=== PATIENT | female | born 1995 | race Caucasian/White ===

== ENCOUNTER 2022-01-15 07:18 | Outpatient (CLI) | payer BC, SELFPAY ==
--- NOTE | 2022-01-15 07:36 | US_ITS ---
WS: [id number] LIMITED OBSTETRICAL ULTRASOUND HISTORY: SUPERVISION OF NORMAL , FIRST TRIMESTER COMPARISON: None available. Presentation: Breech Cervix: Closed and normal length. Placenta: Anterior, no previa or abruption. Grade: 0 HEART: FHR of 150 BPM. measurements: BPD = 2.6 cm = 14w4d HC = 10.1 cm = 14w5d AC = 8.0 cm = 14w3d FL = 1.5 cm = 14w2d Normal amount of amniotic fluid surrounds the fetus. Normal LEFT ovary. RIGHT ovary not identified. No free fluid. AGA by ultrasound: 14w4d DONNELL by ultrasound: 07/12/2022 US/US OB limited [id number] IMPRESSION: 1. Single intrauterine gestation of 14 weeks 4 days with an EDC of 07/12/2022. 2. Normal cardiac activity.
== END 2022-01-15 07:19 | disposition home or self-care (01) ==
PROVIDERS: PCP Family Medicine; Visit Provider Family Medicine
DX: Z34.91 Encounter for supervision of normal pregnancy, unspecified, first trimester (principal)
CPT/HCPCS: 76815

== ENCOUNTER 2022-03-09 07:51 | Outpatient (CLI) | payer BC, SELFPAY ==
--- NOTE | 2022-03-09 08:02 | US_ITS ---
WS: [id number] OBSTETRICAL ULTRASOUND COMPLETE HISTORY: SECOND TRIMESTER /ANATOMY CHECK COMPARISON: 01/15/2022 Single intrauterine gestation in Cephalic presentation. Cervix is Closed and normal length. Cervical length is 3.7 cm. Normal amount of amniotic fluid surrounds the fetus. Placenta: Anterior, no previa or abruption. Placenta grade 0 Heart: 153 BPM. Four chambers are identified. RIGHT and LEFT outflow tracts are unremarkable. Anatomy: Intracranial structures and spine are normal. kidneys, stomach and urinary bladd er are unremarkable. Abdominal wall, three-vessel cord and cord insertion site are normal. 4 extremities are present. profile: Unremarkable. Gender: Male. measurements: BPD = 5.4 cm = 22w2d HC = 19.8 cm = 22w0d AC = 17.4 cm = 22w2d FL = 3.6 cm = 21w3d EFW: 460 g. 50th percentile Biometry is internally concordant. AGA by ultrasound: 22w0d DONNELL by ultrasound: 07/13/2022 US/US OB >= 14 weeks fetus [id number] IMPRESSION: 1. Single intrauterine gestation of 22w0d with an DONNELL of 07/13/2022. Appropria te growth since the prior ultrasound. 2. Unremarkable screening survey of anatomy.
== END 2022-03-09 07:52 | disposition home or self-care (01) ==
PROVIDERS: PCP Family Medicine; Visit Provider Family Medicine
DX: Z36.89 Encounter for other specified antenatal screening (principal); Z3A.22 22 weeks gestation of pregnancy
CPT/HCPCS: 76805

== ENCOUNTER 2022-06-26 09:30 | Outpatient (CLI) | payer BC, SELFPAY ==
[2022-06-26 09:30] VITALS: BMI 23.8
[2022-06-26 09:47] VITALS: BP 127/74; PULSE 109; TEMP 36.1
[2022-06-26 10:02] VITALS: BP 119/75; PULSE 93
== END 2022-06-26 10:10 | disposition home or self-care (01) ==
LOC: OPOB 09:43 → OBGYN 09:46
PROVIDERS: PCP Family Medicine; Visit Provider Family Medicine
DX: O99.419 Diseases of the circulatory system complicating pregnancy, unspecified trimester (principal); Z3A.00 Weeks of gestation of pregnancy not specified
CPT/HCPCS: 59025; 99211

== ENCOUNTER 2022-07-13 11:12 | Outpatient (CLI) | payer BC, SELFPAY ==
[2022-07-13 11:20] VITALS: BMI 24.7
[2022-07-13 11:28] VITALS: BP 126/88; PULSE 91
[2022-07-13 11:49] VITALS: BP 130/80; PULSE 83
[2022-07-13 12:27] VITALS: BP 130/80; PULSE 83; RESP 18
== END 2022-07-13 12:05 | disposition home or self-care (01) ==
LOC: OPOB 11:16 → OBGYN 11:19
PROVIDERS: PCP Family Medicine; Visit Provider Family Medicine
DX: O36.8190 Decreased fetal movements, unspecified trimester, not applicable or unspecified (principal); Z3A.00 Weeks of gestation of pregnancy not specified
CPT/HCPCS: 59025; 99211

== ENCOUNTER 2022-07-20 02:03 | Inpatient (IN) | payer BC, SELFPAY ==
[2022-07-20] VITALS (23 sets, daily range): BP systolic 112–156; BP diastolic 58–89; PULSE 60–90; RESP 16; TEMP 36.1–37.1; BMI 24.5
[2022-07-20 02:11] LABS: Basophils # 0.1 10^3/uL (0.0-0.1); Basophils % 0.6 %; Eosinophils # 0.1 10^3/uL (0.0-0.8); Eosinophils % 0.7 %; Hemoglobin 13.5 g/dL (11.5-15.3); Lymphocytes % 24.7 %; Mean Corpuscular HGB Conc 32.1 g/dL (30.0-36.0); Mean Corpuscular Hemoglobin 28.1 pg (28.0-34.0); Mean Corpuscular Volume 87.3 fl (81-99); Mean Platelet Volume 12.5 fL (7.4-10.4); Monocytes # 0.7 10^3/uL (0.2-0.9); Monocytes % 4.4 %; Neutrophils % 68.6 %; Nucleated Red Blood Cells % 0 %; Platelet Count 327 10^3/cmm (130-400); Red Blood Count 4.81 10^6/uL (4.1-5.3); Red Cell Distribution Width 13.2 % (12.1-15.1); White Blood Count 16.3 10^3/uL (4.0-10.0)
[2022-07-20] MEDS: oxytocin 30 UNIT/500 ML BAG 600 UNIT IV (02:15)
[2022-07-20] MEDS: dextrose 5%-lactated ringers 1,000 ML 125 ML IV (02:15)
--- NOTE | 2022-07-20 02:48 | P.PCNOB_ITS ---
Delivery Note: Date of delivery: July 20, 2022 Pre-delivery diagnoses: Term Active labor Post-delivery diagnoses: Term of male Procedure: Spontaneous vaginal delivery Delivering Physician: Anh Dahl DO Estimated blood loss (mL): 100 Pre-Delivery Course: Patient arrived complete with urge to push. Contractions started around midnight and quickly increased in frequency, duration, and intensity. SROM en route to hospital <1 hour prior to delivery. Delivery: Patient progressed to complete. Patient placed in lithotomy position. Patient pushed with adequate effort. Head delivered in OA position, tight nuchal cord was present and reduced. Shoulders and rest of body delivered without difficulty with no anesthesia. Terminal meconium noted. Mouth and nares bulb suctioned. placed on maternal abdomen. Cord clamped and cut after 30 second delay. Infant transferred to warmer for evaluation after cord cutting with deep suctioning done for mucous. Placenta spontaneously delivered and noted to be intact. Pitocin initiated. Fundus was noted to be firm. The vagina and cervix were inspected and small 2nd degree lacerations was noted. Fundus was again noted to be firm with minimal bleeding. Male born at 02:12 on 07[birth year]/22 with 8/9 weighing 8 lb 0 oz and measuring 20 inches in length Placenta noted to be intact with centrally inserted 3 vessel umbilical cord. Complications: Maternal none Infant none History History History 2 Term 1 0 Miscarriages/Ectopic 0 Living Children 1 Coding Level of Care Code Acute Director Marketing for Chg Yusef
--- NOTE | 2022-07-20 02:48 | P.HP_ITS ---
Providers/Chief Complaint Admitting Physician: Anh Dahl DO Primary Care Provider: Anh Dahl DO Chief Complaint: contractions HPI NETWORK COMMUNICATIONS ENGINEER History of Present Illness Jennifer Lepe is a 27 year old female at 40w5d by sure LMP c/w 14wk US with PMHx tobacco use- stopped in 2nd trimester. PMHx low BMI and childhood asthma. Recovery from COVID in this . She presents to L&D with strong contractions and urge to push with reports of LOF en route to hospital. I was called at approx 1:58am and immediately proceeded to hospital. On arrival she is in pain and complaining of the urge to push care was good and starting in first trimester. Labs Blood type OB HPI: O (+) positive Rubella: Immune RPR: Negative GBS: Negative HBsAG: Negative Other Lab Information: HIV negative Pap smear NILM 12/27/21 Initial H/H 13.6/40.3 3rd trimester H/H 12.7/36.8 Hep C neg UCx no growth 1hr GTT failed (155) 3hr GTT passed (76, 126, 110, 126) Review of Systems General: Reports: ROS unobtainable due to medical condition (severe labor pain and urge to push ) Medications/Allergies Home Medications Medication Instructions Recorded Confirmed Last Taken Type no.58-iron bisglycinate cap PO 06/26/22 06/25/22 21:00 History 10 mg iron-folic acid 400 mcg capsule Allergies Allergy/AdvReac Type Severity Reaction Status Date / Time No Known Allergies Allergy Verified 06/26/22 11:25 History History History 2 Term 1 0 Miscarriages/Ectopic 0 Living Children 1 Vitals/I&O/Wt Last Vital Signs Pulse 76 07/20/22 02:17 Resp 16 07/20/22 02:41 BP 123/58 07/20/22 02:17 Weight last 48 hrs Weight 130 lb Physical Exam Const: COMMON NORMALS: healthy appearing and alert Resp: COMMON NORMALS: normal respiratory effort : OTHER: SVE: complete, +2 Extremity: NARRATIVE EXTREMITY EXAM: No LE edema Psych: COMMON NORMALS: mental status grossly normal Skin: COMMON NORMALS: no rashes or lesions noted Data 07/20/22 02:02 A&P Assessment and plan (1) Uterine contractions during : 27 year old female at 40w5d by sure LMP c/w 14wk US with PMHx tobacco use- stopped in 2nd trimester. PMHx low BMI and childhood asthma. Presents complete and with urge to push. Admit for delivery, CBC, anticipate vaginal delivery. (2) Term : Attestations Medical Necessity Statement*: Jennifer Lepe's hospital stay will require greater than 2 midnights for routine labor and delivery and care. Coding Level of Care Code Acute Information Systems Auditor for Chg Fwd Diagnoses Uterine contractions during O47.9 Term Z34.90
[2022-07-20] MEDS: lanolin oint 7 gm 1 APPLIC TOPICAL (04:34)
[2022-07-20] MEDS: benzocaine-menthol 78 gm Canister 1 SPRAY TOPICAL (04:34)
[2022-07-20] MEDS: lidocaine 2% INJ 20 mL INJECTION (04:36)
[2022-07-20] MEDS: acetaminophen 325 mg Tablet 650 MG PO (07:41)
[2022-07-20] MEDS: ibuprofen 800 mg tablet PO ×3 (09:34→23:33)
[2022-07-20] MEDS: docusate sodium 100 mg Capsule PO (09:34)
[2022-07-20] MEDS: prenatal vitamin Capsule 1 CAP PO (09:35)
[2022-07-20 14:51] LABS: Hematocrit 34.9 % (37.0-47.0); Hemoglobin 11.2 g/dL (11.5-15.3); Mean Corpuscular HGB Conc 32.1 g/dL (30.0-36.0); Mean Corpuscular Hemoglobin 28.3 pg (28.0-34.0); Mean Corpuscular Volume 88.1 fl (81-99); Mean Platelet Volume 12.6 fL (7.4-10.4); Platelet Count 233 10^3/cmm (130-400); Red Blood Count 3.96 10^6/uL (4.1-5.3); Red Cell Distribution Width 13.2 % (12.1-15.1); White Blood Count 20.6 10^3/uL (4.0-10.0)
[2022-07-21] VITALS (7 sets, daily range): BP systolic 105–130; BP diastolic 65–71; PULSE 69–88; TEMP 35.9–36.4
[2022-07-21] MEDS: docusate sodium 100 mg Capsule PO (08:56)
[2022-07-21] MEDS: prenatal vitamin Capsule 1 CAP PO (08:56)
[2022-07-21] MEDS: ibuprofen 800 mg tablet PO ×2 (08:56→16:42)
--- NOTE | 2022-07-21 11:04 | PM.OBGYDC ---
Discharge Providers COCOA ROASTER Date of Admission: 07/20/22 02:03 Date of Discharge: 07/21/22 Attending Provider at Admission: Anh Dahl DO Attending Provider at Discharge: Anh Dahl DO Primary Care Provider: Anh Dahl DO Diagnoses at Discharge Discharge Diagnosis (1) Uterine contractions during : Status: Resolved (2) Term : Status: Resolved (3) Spontaneous vaginal delivery: Status: Acute Reason for Visit Reason for Visit: contractions Hospital Course Hospital Course Pre-Delivery: Patient arrived complete with urge to push. Contractions started around midnight and quickly increased in frequency, duration, and intensity. SROM en route to hospital <1 hour prior to delivery. Delivery: Patient progressed to complete. Patient placed in lithotomy position. Patient pushed with adequate effort. Head delivered in OA position, tight nuchal cord was present and reduced. Shoulders and rest of body delivered without difficulty with no anesthesia. Terminal meconium noted. Mouth and nares bulb suctioned. placed on maternal abdomen. Cord clamped and cut after 30 second delay.? transferred to warm for evaluation after cord cutting with deep suctioning done for mucous.? Placenta spontaneously delivered and noted to be intact. Pitocin initiated. Fundus was noted to be firm. The vagina and cervix were inspected and small 2nd degree lacerations was noted. Fundus was again noted to be firm with minimal bleeding. Male born at 02:12 on 07[birth year]20/22 with 8/9? weighing 8 lb 0 oz and measuring 20 inches in length Placenta noted to be intact with centrally inserted 3 vessel umbilical cord. Complications: Maternal none ? none Post-Delivery: Patient underwent on 07/30/22. course was uncomplicated. Following delivery patient ambulated well, tolerated a normal diet without nausea or vomiting. Pain was well-controlled on PO medications, exclusively, no leg/calf pain, no calf/leg swelling, normal urination, passing gas and normal bowel movements. Vaginal bleeding minimal and decreasing. hemoglobin from 13.5 on admission to 11.2 . control was discussed and patient undecided- plan to discuss on follow-up. Follow-up planned for 2 and 6 weeks . Warning signs for endometritis, pre-eclampsia, DVT/PE, mastitis, hemorrhage were reviewed. Pelvic rest and activity precautions reviewed as well. She is discharged on 07/21/22 in stable condition. Information Peripartum Data: Infant Delivery Method: Vaginal Physical Exam Const: COMMON NORMALS: healthy appearing and alert Resp: COMMON NORMALS: normal respiratory effort and clear to auscultation bilaterally AUSCULTATION: clear to auscultation bilaterally Cardio: COMMON NORMALS: regular rate, regular rhythm, S1 normal heart sound present, S2 normal heart sound present and No murmurs present (Cardio) RATE: regular rate RHYTHM: regular rhythm HEART SOUNDS: S1 normal heart sound present and S2 normal heart sound present : OTHER: Uterine fundus firm and below the umbilicus Extremity: NARRATIVE EXTREMITY EXAM: No LE edema, no calf tenderness Neuro: SENSORIUM/ORIENTATION: Yes alert Psych: COMMON NORMALS: mental status grossly normal Skin: COMMON NORMALS: no rashes or lesions noted GENERAL SKIN EXAM: no rashes or lesions noted History History History 2 Term 1 0 Miscarriages/Ectopic 0 Living Children 1 Discharge Data Studies Completed and Pending Laboratory Results WBC 20.6 10^3/uL (4.0-10.0) H 07/20/22 14:25 RBC 3.96 10^6/uL (4.1-5.3) L 07/20/22 14:25 Hgb 11.2 g/dL (11.5-15.3) L 07/20/22 14:25 Hct 34.9 % (37.0-47.0) L 07/20/22 14:25 MCV 88.1 fl (81-99) 07/20/22 14:25 MCH 28.3 pg (28.0-34.0) 07/20/22 14:25 MCHC 32.1 g/dL (30.0-36.0) 07/20/22 14:25 RDW 13.2 % (12.1-15.1) 07/20/22 14:25 Plt Count 233 10^3/cmm (130-400) 07/20/22 14:25 MPV 12.6 fL (7.4-10.4) H 07/20/22 14:25 Neut % (Auto) 68.6 % 07/20/22 02:02 Lymph % (Auto) 24.7 % 07/20/22 02:02 Mcdonough % (Auto) 4.4 % 07/20/22 02:02 Eos % (Auto) 0.7 % 07/20/22 02:02 Baso % (Auto) 0.6 % 07/20/22 02:02 Neut # (Auto) 11.20 10^3/uL (1.8-7.7) H 07/20/22 02:02 Lymph # (Auto) 4.0 10^3/uL (0.8-4.8) 07/20/22 02:02 Mcdonough # (Auto) 0.7 10^3/uL (0.2-0.9) 07/20/22 02:02 Eos # (Auto) 0.1 10^3/uL (0.0-0.8) 07/20/22 02:02 Baso # (Auto) 0.1 10^3/uL (0.0-0.1) 07/20/22 02:02 Nucleated RBC % (auto) 0 % 07/20/22 02:02 Nucleated RBCs # 0.0 /100WBC 07/20/22 02:02 Blood Type O Positive 07/20/22 02:05 Rho(D) Type Positive 07/20/22 02:05 Antibody Screen Negative 07/20/22 02:05 Vitals Last Vital Signs Temp 96.6 F L 07/21/22 08:55 Pulse 88 07/21/22 08:56 Resp 16 07/20/22 02:45 BP 130/70 07/21/22 08:56 O2 Del Method 07/20/22 04:00 Discharge Plan Discharge Patient Disposition: Home Condition: Stable Prescriptions: New docusate sodium 100 mg Capsule 100 mg PO BID Qty: 90 0RF ibuprofen 800 mg Tablet 800 mg PO TID Qty: 90 0RF Continued PNV comb no.58-iron bisgly-FA 10-400 mg-mcg Capsule PO Discharge Orders: Discharge Order (Routine); Ordered 07/21/22 Ordered By: Anh Dahl Discharge Diet: Regular Discharge Activity: Increase activity as tolerated Patient Instructions: Ibuprofen (By mouth), Vitamins (By mouth), Laxative, Stool Softeners (By mouth) (Doculax, Colace, Colace Clear, DSS), Bleeding (DC), Pelvic Rest (ED), Preeclampsia and Eclampsia After Delivery (GEN), Vaginal Delivery (DC), OB Food/Drug Interaction Guide, Opioid Safety Activity Restrictions/Additional Instructions: Pelvic rest for 6 weeks. Follow-up with Dr. Dahl at 2 and 6 weeks . Call office for appointment. Discharge Attestations COCOA ROASTER Time Spent in Discharge Care*: less than 30 min Coding Level of Care Code Acute Cargo Station Worker for Chg Fwd Diagnoses Uterine contractions during O47.9 Term Z34.90 Spontaneous vaginal delivery O80
== END 2022-07-21 18:29 | disposition home or self-care (01) | DRG 807 ==
LOC: OBGYN 08:02 → OPOB 07-21 07:34 → OBGYN 07-21 07:34
PROVIDERS: Admitting Provider Family Medicine; PCP Family Medicine; Visit Provider Family Medicine
DX: O48.0 Post-term pregnancy (principal); Z37.0 Single live birth; Z3A.40 40 weeks gestation of pregnancy; O77.0 Labor and delivery complicated by meconium in amniotic fluid; O99.334 Smoking (tobacco) complicating childbirth; O99.52 Diseases of the respiratory system complicating childbirth; J45.909 Unspecified asthma, uncomplicated; O69.1XX0 Labor and delivery complicated by cord around neck, with compression, not applicable or unspecified; O70.9 Perineal laceration during delivery, unspecified; F17.200 Nicotine dependence, unspecified, uncomplicated
CPT/HCPCS: 36415; 59025; 59409; 85025; 85027; 86850; 86900; 99211; J2590; J7121

== ENCOUNTER 2025-04-02 02:04 | Inpatient (IN) | payer BC, SELFPAY ==
[2025-04-02] VITALS (14 sets, daily range): BP systolic 114–123; BP diastolic 71–89; PULSE 78–82; RESP 16–17; TEMP 36.6–37
[2025-04-02] MEDS: oxytocin 30 UNIT/500 ML BAG 300 UNIT (02:00)
[2025-04-02 02:15] LABS: Hematocrit 39.7 % (36-47); Hemoglobin 12.60 g/dL (11.27-16.99); Mean Corpuscular HGB Conc 31.7 g/dL (30-55); Mean Corpuscular Hemoglobin 26.8 pg (27-33); Mean Corpuscular Volume 84.3 fl (85-98); Nucleated Red Blood Cells % 0 %; Platelet Count 242 10^3/cmm (157-399); Red Blood Count 4.71 10^6/uL (3.85-5.65); White Blood Count 16.26 10^3/uL (3.29-11.43)
--- NOTE | 2025-04-02 02:20 | PM.OPHPUD ---
Labor & Delivery H&P Update Date of Procedure: April 02, 2025 Date H&P Performed: 04/01/25 Changes to previous documentation: The patient arrived to the hospital complete with spontaneous rupture of membranes Admission Diagnosis: 29-year-old 3 para 2-0-0-2 at 38 weeks estimated gestational age and diet-controlled gestational diabetes Planned procedure: Spontaneous vaginal delivery Other information: The patient is a 29-year-old female whose had a this been remarkable for gestational diabetes. She has had consistent care. She had well-controlled diet-controlled gestational diabetes. Otherwise, there were no concerns during her . Her blood type is O+. Her antibody screen was negative. She is GBS negative. She is rubella immune. She did not pass her 3-hour glucose screen. The remainder of her infectious disease profile was within normal limits.. Related Problem List Diagnoses 1. 38 weeks gestation of : 2. Gestational diabetes mellitus: A&P Assessment and plan 1. 38 weeks gestation of : The patient delivered her baby shortly after arrival to hospital. Status: Acute 2. Gestational diabetes mellitus: Status: Acute PDMP PDMP Reviewed: Not Reviewed
--- NOTE | 2025-04-02 02:23 | PM.DELIVERY ---
Delivery Note: Date of delivery: April 02, 2025 Pre-delivery diagnoses: 29-year-old 3 para 2-0-0-2 at 38 weeks estimated gestational age presenting with spontaneous rupture of membranes and an active labor Post-delivery diagnoses: Status post precipitous spontaneous vaginal delivery Procedure: Precipitous vaginal delivery Delivering Physician: Kevin Hughes Estimated blood loss (mL): 200 Pre-Delivery Course: The patient arrived to the hospital having contractions every 2 to 5 minutes and having had rupture membranes about 1/2-hour prior to arrival. Delivery: DELIVERY: The patient progressed to complete without difficulty. She precipitously delivered a female with a weight of 6 pounds 9 ounces with Apgars of 8, 9. The baby was delivered from the vertex position. The baby's mouth and nose were suctioned at the site of the perineum. The baby was then completely delivered and placed on the mother's abdomen. The cord was then clamped and later cut. There was no nuchal cord. Meconium was noted. The placenta and 3 vessel cord were delivered intact shortly thereafter. The perineum and vaginal vault were carefully examined. A superficial posterior midline tear extending into the perineum was noted. Bleeding stopped and no stitches were necessary.. Both the mother and the baby were in stable condition. Post-Delivery Status: Good History History History 3 Term 3 0 Miscarriages/Ectopic 0 Living Children 3 A&P Assessment and plan 1. Gestational diabetes mellitus: 2. Spontaneous vaginal delivery: I anticipate routine care. The patient had excellent control of her diabetes with diet to her , no further evaluation of her diabetes beyond a twice daily blood sugar check will be required. 3. 38 weeks gestation of : PDMP PDMP Reviewed: Not Reviewed Coding Level of Care Code Acute Code for Chg Fwd Diagnoses Gestational diabetes mellitus O24.419 Spontaneous vaginal delivery O80 38 weeks gestation of Z3A.38
--- NOTE | 2025-04-02 06:15 | PC.NURSE ---
Pt arrived to the unit by wheelchair at 0136 c/o SROM and contractions. Pt taken to the delivery room. Estephania Cordero RN preformed SVE, pt was complete at this time. Dr. Hughes notified of pt arrival to the unit where SROM with mec fluid was noted and pt complete. This Rn and Braden Baez RN at the bedside pt feeling urge to push and large crown is noted. 0146 head and body delivered involuntarily, place on mothers abdomen . Live born female with apgars of 8/9. Dr. Hughes at the bedside at 0155, placenta at 0200. No repairs.
[2025-04-02] MEDS: PRENATAL VIT NO.130/IRON/FOLIC 1 EACH TABLET PO (10:28)
[2025-04-02 16:46] LABS: Hematocrit 38.6 % (36-47); Hemoglobin 12.30 g/dL (11.27-16.99); Mean Corpuscular HGB Conc 31.9 g/dL (30-55); Mean Corpuscular Hemoglobin 26.9 pg (27-33); Mean Corpuscular Volume 84.3 fl (85-98); Platelet Count 239 10^3/cmm (157-399); Red Blood Count 4.58 10^6/uL (3.85-5.65); White Blood Count 18.34 10^3/uL (3.29-11.43)
[2025-04-03 04:30] VITALS: BP 114/70; PULSE 71; RESP 16; TEMP 36.5; O2SAT 98
[2025-04-03] MEDS: PRENATAL VIT NO.130/IRON/FOLIC 1 EACH TABLET PO (09:01)
[2025-04-03 09:03] VITALS: BP 115/77; PULSE 82; RESP 15; TEMP 36.6; TEMP 36.7
--- NOTE | 2025-04-03 09:56 | P.DS_ITS ---
Discharge Providers JANITORIAL SERVICES SUPERVISOR Date of Admission: 04/02/25 02:04 Date of Discharge: 04/03/25 Attending Provider at Admission: Kevin Hughes MD Attending Provider at Discharge: Kevin Hughes MD Primary Care Provider: Anh Dahl DO Diagnoses at Discharge Discharge Diagnosis 1. Gestational diabetes mellitus: 2. Spontaneous vaginal delivery: 3. 38 weeks gestation of : Reason for Visit Reason for Visit: srom Hospital Course Hospital Course The patient arrived to the hospital after having spontaneous rupture membranes. She was noted to be complete and promptly had a precipitous vaginal delivery. She had only a superficial debris tear did not require repair. Her c ourse was unremarkable. Her bleeding has been within normal limits. She has breast-fed well. Her pains been well-controlled. There have been no concerns. Information Peripartum Data: Delivery Method: Vaginal Physical Exam Narrative: The patient is alert. She appears comfortable. Her heart has a regular rate and rhythm with no murmurs appreciated. Lungs are clear to auscultation bilaterally. Her fundus is firm and below the umbilicus. History History History 3 Term 3 0 Miscarriages/Ectopic 0 Living Children 3 Discharge Data Studies Completed and Pending Laboratory Results WBC 18.34 10^3/uL (3.29-11.43) H 04/02/25 16:20 RBC 4.58 10^6/uL (3.85-5.65) 04/02/25 16:20 Hgb 12.30 g/dL (11.27-16.99) 04/02/25 16:20 Hct 38.6 % (36-47) 04/02/25 16:20 MCV 84.3 fl (85-98) L 04/02/25 16:20 MCH 26.9 pg (27-33) L 04/02/25 16:20 MCHC 31.9 g/dL (30-55) 04/02/25 16:20 RDW 13.2 % (12.1-15.1) 04/02/25 16:20 Plt Count 239 10^3/cmm (157-399) 04/02/25 16:20 MPV 12.6 fL (7.4-10.4) H 04/02/25 16:20 Neut % (Auto) 74.7 % 04/02/25 02:06 Lymph % (Auto) 19.7 % 04/02/25 02:06 Wirt % (Auto) 4.6 % 04/02/25 02:06 Eos % (Auto) 0.2 % 04/02/25 02:06 Baso % (Auto) 0.3 % 04/02/25 02:06 Neut # (Auto) 12.14 10^3/uL (1.8-7.7) H 04/02/25 02:06 Lymph # (Auto) 3.2 10^3/uL (0.8-4.8) 04/02/25 02:06 Wirt # (Auto) 0.7 10^3/uL (0.2-0.9) 04/02/25 02:06 Eos # (Auto) 0.0 10^3/uL (0.0-0.8) 04/02/25 02:06 Baso # (Auto) 0.1 10^3/uL (0.0-0.1) 04/02/25 02:06 Nucleated RBC % (auto) 0 % 04/02/25 02:06 Nucleated RBCs # 0.0 /100WBC 04/02/25 02:06 POC Glucose 102 mg/dL (70-110) 04/02/25 16:18 Blood Type O Positive 04/02/25 02:00 Rho(D) Type Rh positive 04/02/25 02:00 Antibody Screen Negative 04/02/25 02:00 Vitals Last Vital Signs Temp 98.0 F 04/03/25 09:03 Pulse 82 04/03/25 09:03 Resp 15 04/03/25 09:03 BP 115/77 04/03/25 09:03 Pulse Ox 98 04/03/25 04:30 O2 Del Method Room Air 04/03/25 04:30 Results Labs OB ([facility]): Blood Type O Positive 04/02/25 Antibody Screen Negative 04/02/25 Hct, (36-47) 38.6 % 04/02/25 Hgb, (11.27-16.99) 12.30 g/dL 04/02/25 Rho(D) Type Rh positive 04/02/25 Plt Count, (157-399) 239 10^3/cmm 04/02/25 Discharge Plan Discharge Patient Disposition: Home Condition: Stable Prescriptions: New ibuprofen 800 mg Tablet 800 mg PO TID Qty: 45 0RF Continued PNV no.58-iron bisgly-folic ac 10-400 mg-mcg Capsule PO Discontinued docusate sodium 100 mg Capsule 100 mg PO BID Qty: 90 0RF ibuprofen 800 mg Tablet 800 mg PO TID Qty: 90 0RF Discharge Order = DC NOW: Discharge Order (Routine); Ordered 04/03/25 Ordered By: Kevin Hughes Referrals: Kevin Hughes MD [Physician, Family Practice] - 6 Weeks Discharge Diet: Usual diet Discharge Activity: Limit activity as instructed Patient Instructions: Depression (DC), Opioid Safety (DC), Preeclampsia and Eclampsia After Delivery (GEN), Hemorrhage (DC), OB Discharge Report, OB Food/Drug Interaction Guide, OB Care at Home, Opioid Safety, OB Vaginal Deliveries, Patient Portal & Dionne Instructions, Abnormal Bleeding Discharge Attestations JANITORIAL SERVICES SUPERVISOR Time Spent in Discharge Care*: less than 30 min Coding Level of Care Code Acute Code for Chg Fwd Diagnoses Gestational diabetes mellitus O24.419 Spontaneous vaginal delivery O80 38 weeks gestation of Z3A.38
[2025-04-03 10:45] VITALS: BP 115/70; PULSE 82; RESP 16; TEMP 36.6; O2SAT 98
== END 2025-04-03 10:51 | disposition home or self-care (01) | DRG 807 ==
LOC: OPOB 02:04 → OBGYN 02:04
PROVIDERS: Admitting Provider Family Medicine; PCP Family Medicine; Visit Provider Family Medicine
DX: O24.420 Gestational diabetes mellitus in childbirth, diet controlled (principal); Z37.0 Single live birth; O77.0 Labor and delivery complicated by meconium in amniotic fluid; Z3A.38 38 weeks gestation of pregnancy
CPT/HCPCS: 36415; 36416; 59409; 82962; 85025; 85027; 86850; 86900; J2590; J7120; J9999